=== PATIENT | male | born 1960 | race Caucasian/White ===

== ENCOUNTER 2017-06-15 09:13 | Emergency (ER) | payer OTHER ==
[~2017-06-15] VITALS: Ht 180.3 cm; Wt 81.7 kg
[~2017-06-15 09:13] MED LIST: CIPROFLOXACIN500 M1 PO; NORCO 5-325 TA1 EACH PO; PERCOCET 5-3251 EACH PO
[2017-06-15 09:19] VITALS: BP 137/92
[2017-06-15] MEDS ORDERED: ZPAK PO (09:24)
[2017-06-15] MEDS ORDERED: PREDNISONE 20 M20 M1 PO (09:24)
== END 2017-06-15 09:54 | disposition home or self-care (01) ==
LOC: M.ERS 09:13
DX: J06.9 Acute upper respiratory infection, unspecified (principal)